=== PATIENT | male | born 1960 | race Caucasian/White ===

== ENCOUNTER 2018-07-29 06:15 | Outpatient (CLI) | payer MEDICAID ==
[~2018-07-29] VITALS: Ht 162.6 cm; Wt 70.5 kg
[~2018-07-29 06:15] MED LIST: ACET325T49 PO; ATOR10TA66 PO; BETA10003 PO; BISM262O24 PO; CARB15DR87 EACH EAR; DIAZ10TA3 PO; DOCU100T2 PO; FLUV100T3 PO; LORA1TAB PO; MAGN400O7 PO; METH54TA10 PO; OLAN10TA19 PO
[2018-08-03] MEDS ORDERED: CHLO473M MM (15:51)
[2018-08-03] MEDS ORDERED: METH27TA11 PO (15:51)
[2018-08-03] MEDS ORDERED: PARO30TA3 PO (15:51)
[2018-08-03] MEDS ORDERED: BENZ0.5T42 PO (15:51)
[2018-08-03] MEDS ORDERED: OLAN15TA19 PO (15:51)
[2018-08-03] MEDS ORDERED: CLON0.5T13 PO (15:51)
[2018-08-03] MEDS ORDERED: MULT1TAB72 PO (15:51)
[2018-08-03] MEDS ORDERED: SODI44SP2 NS (15:51)
== END 2018-08-03 15:58 | disposition home or self-care (01) ==
LOC: PREOP 06:15
PROVIDERS: ATTEND Otolaryngology Otolaryngology/Facial Plastic Surgery
DX: Z01.818 Encounter for other preprocedural examination (principal)

== ENCOUNTER 2018-08-06 07:40 | Day surgery (SDC) | payer MEDICAID ==
[~2018-08-06] VITALS: Ht 162.6 cm; Wt 70.5 kg
[2018-08-06] VITALS (10 sets, daily range): BP systolic 97–127; BP diastolic 47–77
[~2018-08-06 07:40] MED LIST changes: +BENZ0.5T42 PO; +CHLO473M MM; +CLON0.5T13 PO; +METH27TA11 PO; +MULT1TAB72 PO; +OLAN15TA19 PO; +PARO30TA3 PO; +SODI44SP2 NS
--- OUTSIDE RECORDS SUMMARY | 2018-08-06 07:44 | XMS REPORT ---
Author ALL [facility] Address [address] [place], [place] [id number] Care Team Providers Care Senior Engineering Manager Name Role Phone ALL EGLLER PCP ALL GELLER PreferredProvider Allergies and Adverse Reactions Name Reaction Notes NO KNOWN DRUG ALLERGIES Plan of Treatment Planned Activity Comments Planned Date Planned Time Plan/Goal bloody nose 03/22/2018 10:45 AM MRI ABDOMEN W/WO CONTRAST 04/21/2016 12:00 AM CMP 08/03/2017 12:00 AM LIPID PANEL 08/03/2017 12:00 AM PSA TOTAL 10/19/2017 12:00 AM PSA TOTAL 10/20/2017 12:00 AM Medications Active Name Start Date Estimated Completion Date SIG Comments fluvoxamine 100 mg oral tablet take 1 tablet (100 mg) by oral route 2 times per day Zyprexa 10 mg oral tablet take 1 tablet (10 mg) by oral route once daily Peridex 0.12 % mucous membrane mouthwash place 15 milliliters in the mouth by mucous membrane route 2 times per day after brushing teeth, swish in mouth for 30 seconds then spit out Therems oral tablet 12/22/2016 take 1 tablet by oral route daily Lipitor 10 mg oral tablet 12/23/2016 take 1 tablet (10 mg) by oral route once daily at bedtime Debrox 6.5 % otic (ear) drops 03/19/2017 instill 5 drops in affected ear BID the first 3 days of every month lorazepam 1 mg oral tablet 09/10/2017 Take one tab prior to dental procedures. Therems oral tablet 11/19/2017 TAKE 1 TABLET BY MOUTH ONCE DAILY FOR NUTRITIONAL SUPPLEMENT DOK 100 mg oral capsule 11/19/2017 TAKE 1 CAPSULE BY MOUTH EVERY MORNING hydrocortisone 1 % topical cream 02/22/2018 APPLY TWICE DAILY TO FACE NEEDED atorvastatin 10 mg oral tablet 02/23/2018 TAKE 1 TABLET BY MOUTH AT BEDTIME FOR HYPERLIPIDEMIA fluticasone 50 mcg/actuation nasal spray,suspension 03/10/2018 INSTILL 1 SPRAY INTO EACH NOSTRIL TWICE DAILY chlorhexidine gluconate 0.12 % mucous membrane mouthwash 03/11/2018 APPLY 10ML BY MOUTH TWICE DAILY *SWISH AND SWALLOW* Name Start Date Expiration Date SIG Comments diazepam 10 mg oral tablet 07/14/2013 07/20/2013 take 1 tablet (10 mg) by oral route 1 hr before dental appt. may repeat dose at appt. as needed methylphenidate 54 mg oral tablet extended release 24hr 08/22/2013 09/21/2013 take 1 tablet (54 mg) by oral route once daily in the morning for 30 days for ADHD connections resident methylphenidate 54 mg oral tablet extended release 24hr 08/22/2013 09/21/2013 take 1 tablet (54 mg) by oral route once daily in the morning for 30 days for ADHD connections resident Zithromax Z-Edmudn 250 mg oral tablet 04/03/2017 04/08/2017 take 2 tablets (500 mg) by oral route once daily for 1 day then 1 tablet (250 mg) by oral route once daily for 4 days cephalexin 500 mg oral capsule 10/09/2017 10/16/2017 take 1 capsule (500 mg) by oral route every 12 hours for 7 days [place] 5-325 mg oral tablet 10/09/2017 10/19/2017 take 1 tablet by oral route every 6 hours as needed for pain for 10 days amoxicillin 500 mg oral capsule 02/02/2018 02/12/2018 take 1 capsule (500 mg) by oral route every 12 hours for 10 days Problem List Description Status Onset Mental retardation Active ADHD Active Anxiety Disorder, Generalized Active Constipation Active Hyperlipidemia, Mixed Active Intermittent explosive disorder Active Schizoaffective disorder; Bipolar type Active Vitamin deficiency Active Schizoaffective disorder, bipolar type Active 06/18/2016 Medication management Active 06/18/2016 Periodontitis Active 02/11/2018 Vital Signs Date Time BP-Sys(mm[Hg] BP-Jing(mm[Hg]) HR(bpm) RR(rpm) Temp WT HT HC BMI BSA BMI Percentile O2 Sat(%) 05/26/2018 10:43:00 AM 116 mmHg 72 mmHg 82 bpm 18 rpm 98.2 F 136 lbs 66 in 21.9507 kg/m 1.6949 m 98 % 02/16/2018 9:17:00 AM 116 mmHg 78 mmHg 88 bpm 18 rpm 98.3 F 137 lbs 66 in 22.11 kg/m2 1.70 m2 98 % 02/02/2018 11:03:00 AM 110 mmHg 68 mmHg 93 bpm 20 rpm 98.1 F 134 lbs 66 in 21.6279 kg/m 1.6824 m 95 % 10/07/2017 1:55:00 PM 120 mmHg 80 mmHg 70 bpm 18 rpm 98.1 F 132 lbs 98 % 09/15/2017 11:15:00 AM 130 mmHg 80 mmHg 85 bpm 18 rpm 98.1 F 130.375 lbs 64 in 22.3786 kg/m 1.6341 m 96 % 08/03/2017 11:02:00 AM 116 mmHg 82 mmHg 90 bpm 18 rpm 98.2 F 131 lbs 64 in 22.49 kg/m2 1.64 m2 98 % 04/03/2017 11:07:00 AM 108 mmHg 70 mmHg 94 bpm 18 rpm 96 F 139 lbs 98 % 12/05/2016 11:07:00 AM 125 mmHg 62 mmHg 70 bpm 16 rpm 98.4 F 147 lbs 64 in 25.2322 kg/m 1.7352 m 98 % 09/08/2016 11:28:00 AM 122 mmHg 78 mmHg 92 bpm 16 rpm 98.2 F 145 lbs 64 in 24.89 kg/m2 1.72 m2 100 % 06/09/2016 11:34:00 AM 125 mmHg 62 mmHg 102 bpm 18 rpm 97.4 F 141 lbs 64 in 24.2023 kg/m 1.6994 m 95 % 05/12/2016 2:06:00 PM 124 mmHg 70 mmHg 62 bpm 16 rpm 97.1 F 134 lbs 64 in 23.00 kg/m2 1.66 m2 98 % 04/21/2016 10:45:00 AM 130 mmHg 104 mmHg 97 bpm 20 rpm 97.6 F 144 lbs 64 in 24.7173 kg/m 1.7174 m 95 % 01/29/2016 3:47:00 PM 122 mmHg 80 mmHg 92 bpm 16 rpm 97.9 F 154 lbs 64 in 26.43 kg/m2 1.78 m2 98 % 08/21/2015 10:22:00 AM 108 mmHg 74 mmHg 80 bpm 18 rpm 98.2 F 169 lbs 64 in 29.0085 kg/m 1.8605 m 94 % 10/16/2014 11:29:00 AM 100 mmHg 60 mmHg 90 bpm 16 rpm 98.4 F 156 lbs 94 % 10/11/2013 9:10:00 AM 122 mmHg 76 mmHg 91 bpm 20 rpm 97.6 F 147.437 lbs 94 % 12/08/2012 9:21:00 AM 112 mmHg 68 mmHg 64 bpm 24 rpm 98.6 F 140 lbs 64 in 24.0307 kg/m 1.6934 m 99 % 06/08/2012 3:00:00 PM 110 mmHg 60 mmHg 120 bpm 16 rpm 97.3 F 140 lbs 64 in 24.03 kg/m2 1.69 m2 99 % 10/14/2011 10:16:00 AM 105 mmHg 64 mmHg 52 bpm 18 rpm 142.312 lbs 07/08/2011 9:56:00 AM 114 mmHg 72 mmHg 66 bpm 140 lbs 64 in 24.0307 kg/m 1.6934 m 96 % 04/16/2011 10:04:00 AM 118 mmHg 72 mmHg 80 bpm 139 lbs 63 in 24.62 kg/m2 1.67 m2 97 % 01/15/2011 9:48:00 AM 112 mmHg 80 mmHg 93 bpm 138 lbs 63 in 24.4454 kg/m 1.6681 m 96 % 10/03/2010 10:09:00 AM 122 mmHg 76 mmHg 76 bpm 141 lbs 05/30/2009 2:50:00 PM 118 mmHg 76 mmHg 72 bpm 99 F 154 lbs Social History Name Description Comments Tobacco Never smoker denies alcohol use History of Procedures Date Ordered Description Order Status 03/05/2016 12:00 AM ELECTROCARDIOGRAM TRACING Returned 08/03/2017 12:00 AM COMPLETE CBC W/AUTO DIFF WBC Returned 09/15/2017 12:00 AM URINALYSIS AUTO W/SCOPE Reviewed 03/18/2018 12:00 AM INFLUENZA A/B AG EIA Returned Results Summary Date and Description Results 09/15/2017 11:30 AM COLOR YELLOW APPEARANCE CLEAR SPEC GRAV 1.020 pH 8.5 PROTEIN NEGATIVE GLUCOSE NEGATIVE KETONE NEGATIVE BILIRUBIN NEGATIVE BLOOD NEGATIVE NITRITE NEGATIVE LEUK SCREEN NEGATIVE WBC/HPF RARE RBC/HPF NEGATIVE CASTS/LPF NEGATIVE CRYSTALS TRACE CA OX MUCOUS THRDS FEW BACTERIA 1+ EPITH CELLS NEGATIVE TRICHOMONAS NEGATIVE YEAST NEGATIVE CULT SET UP? NO History Of Immunizations Not available. History of Past Illness Name Date of Onset Comments General Medical Exam, Adult Mar 17 2010 2:51PM Mental retardation Hyperlipidemia, Mixed Intermittent explosive disorder ADHD Schizoaffective disorder; Bipolar type Vitamin deficiency Anxiety Disorder, Generalized Constipation Schizoaffective disorder, bipolar type 06/18/2016 Medication management 06/18/2016 Seborrhea Capitis Oct 03 2010 10:07AM Eczema Jan 15 2011 9:44AM Periodontitis 02/11/2018 Psoriasis b 2011 10:05AM Mental Retardation Apr 16 2011 10:05AM Hyperlipidemia, unspecified Jul 08 2011 9:58AM General Medical Exam, Adult Jul 08 2011 9:58AM ADHD Jul 08 2011 9:58AM Impulse control disorder, unspecified Jul 08 2011 9:58AM Mental Retardation Jul 08 2011 9:58AM Paranoid Type Schizophrenia Oct 14 2011 10:18AM Mental Retardation Oct 14 2011 10:18AM Pain in joint; ankle and foot Jun 08 2012 3:02PM Mental Retardation Dec 15 2012 9:22AM ADHD Dec 15 2012 9:22AM Anxiety Disorder, Generalized Dec 15 2012 9:22AM Hyperlipidemia, Mixed Dec 15 2012 9:22AM Intermittent explosive disorder Dec 15 2012 9:22AM Schizoaffective disorder; Bipolar type Dec 15 2012 9:22AM Vitamin Deficiency Dec 15 2012 9:22AM Mental Retardation Oct 11 2013 9:11AM ADHD Oct 11 2013 9:11AM Anxiety Disorder, Generalized Oct 11 2013 9:11AM Intermittent explosive disorder Oct 11 2013 9:11AM Schizoaffective disorder; Bipolar type Oct 11 2013 9:11AM Constipation Oct 16 2014 11:29AM Mental retardation Oct 16 2014 11:29AM ADHD Oct 16 2014 11:29AM Anxiety Disorder, Generalized Oct 16 2014 11:29AM Hyperlipidemia, Mixed Oct 16 2014 11:29AM Intermittent explosive disorder Oct 16 2014 11:29AM Schizoaffective disorder; Bipolar type Oct 16 2014 11:29AM Vitamin deficiency Oct 16 2014 11:29AM Mental retardation Aug 21 2015 10:23AM ADHD Aug 21 2015 10:23AM Anxiety Disorder, Generalized Aug 21 2015 10:23AM Hyperlipidemia, mixed Aug 21 2015 10:23AM Moderate Chronic Intermittent explosive disorder Aug 21 2015 10:23AM Moderate Chronic Schizoaffective disorder; Bipolar type Stable Aug 21 2015 10:23AM Mental retardation Jan 29 2016 3:47PM Intermittent explosive disorder Jan 29 2016 3:47PM Schizoaffective disorder; Bipolar type Jan 29 2016 3:47PM Irregular heart beat Mar 05 2016 11:21AM Pancreatic lesion Apr 21 2016 10:45AM Mental retardation May 12 2016 2:07PM ADHD May 12 2016 2:07PM Anxiety Disorder, Generalized May 12 2016 2:07PM Intermittent explosive disorder May 12 2016 2:07PM Schizoaffective disorder; Bipolar type May 12 2016 2:07PM Resolved Hypoxemia May 12 2016 2:07PM Mild Chest congestion Stable May 12 2016 2:07PM Medication management Jun 09 2016 11:35AM Mental retardation Jun 09 2016 11:35AM ADHD (attention deficit hyperactivity disorder) Jun 09 2016 11:35AM FERNY (generalized anxiety disorder) Jun 09 2016 11:35AM Hyperlipidemia, Mixed Jun 09 2016 11:35AM Intermittent explosive disorder Jun 09 2016 11:35AM Schizoaffective disorder, bipolar type Jun 09 2016 11:35AM Encounter for routine adult health examination without abnormal findings Sep 08 2016 11:30AM Upper respiratory tract infection, unspecified type Dec 05 2016 11:08AM Moderate Acute Acute seasonal allergic rhinitis, unspecified trigger Improving Dec 05 2016 11:08AM Cough Apr 03 2017 11:09AM Chest congestion Apr 03 2017 11:09AM Upper respiratory tract infection, unspecified type Apr 03 2017 11:09AM Screening for prostate cancer Aug 03 2017 10:48AM Hyperlipemia Aug 03 2017 10:48AM Fatigue Aug 03 2017 10:48AM Encounter for routine adult health examination without abnormal findings Aug 03 2017 11:03AM Abnormal PSA Sep 15 2017 11:17AM Acute Tooth infection Oct 07 2017 1:55PM Severe Acute Tooth pain Oct 07 2017 1:55PM Moderate Chronic Periodontosis Oct 07 2017 1:55PM Abnormal PSA Oct 20 2017 9:30AM Purulent postnasal drainage Feb 02 2018 11:04AM Upper respiratory tract infection, unspecified type Feb 02 2018 11:04AM Moderate Chronic Periodontitis Feb 02 2018 11:04AM Acute nasopharyngitis Feb 16 2018 9:20AM Epistaxis, recurrent Feb 16 2018 9:20AM Nasal congestion Feb 16 2018 9:20AM Cough Mar 18 2018 11:26AM Encounter for routine adult health examination without abnormal findings May 26 2018 10:43AM Payers Insurance Name Company Name Plan Name Plan Number Policy Number Policy Group Number Start Date [facility] [id number] N/A [place] Program [place] Prog [id number] N/A [facility] [id number] N/A History of Encounters Visit Date Visit Type Provider 05/26/2018 Office visit ALL WOODS 03/18/2018 Office visit ALL WOODS 02/16/2018 Office visit ALL WOODS 02/02/2018 Office visit ALL WOODS 10/07/2017 Office visit ALL WOODS 09/15/2017 Office visit Pérez Wooten MD 08/03/2017 Office visit ALL WOODS 04/03/2017 Office visit ALL WOODS 12/04/2016 Office visit ALL WOODS 09/08/2016 Office visit ALL WOODS 06/09/2016 Office visit ALL WOODS 05/12/2016 Office visit ALL WOODS 04/21/2016 Office visit All Euceda MD 03/11/2016 [facility] Dina Hodgson MD 01/29/2016 Office visit ALL WOODS 08/21/2015 Office visit ALL WOODS 10/16/2014 Office visit ALL WOODS 10/11/2013 Office visit ALL WOODS 12/08/2012 Office visit ALL WOODS 06/08/2012 Office visit ALL WOODS 10/14/2011 Office visit ALL WOODS 07/08/2011 Office visit ALL WOODS 04/16/2011 Office visit ALL WOODS 01/15/2011 Office visit ALL GELLER PA 10/03/2010 Office visit All WOODS-C 05/30/2009 Office visit All DOMINGUEZC
--- OUTSIDE RECORDS SUMMARY | 2018-08-06 07:45 | XMS REPORT ---
Author ALL [facility] Address [address] [place], [place] [id number] Care Team Providers Care Presiding Judge Name Role Phone ALL GELLER PCP ALL GELLER PreferredProvider Allergies and Adverse [...] TAKE 1 CAPSULE BY MOUTH EVERY MORNING fluticasone 50 mcg/actuation nasal spray,suspension 02/02/2018 inhale 1 spray (50 mcg) in each nostril by intranasal route 2 times per day chlorhexidine gluconate 0.12 % mucous membrane mouthwash 02/15/2018 place 15 milliliters in the mouth by mucous membrane route 2 times per day (after meals), swish in mouth for 30 seconds then spit out hydrocortisone 1 % topical cream 02/22/2018 APPLY TWICE DAILY TO FACE NEEDED atorvastatin 10 mg oral tablet 02/23/2018 TAKE 1 TABLET BY MOUTH AT BEDTIME FOR HYPERLIPIDEMIA Name Start Date Expiration Date SIG Comments [...] 30 days for ADHD connections resident Zithromax Z-Edmund 250 mg oral tablet 04/03/2017 04/08/2017 take 2 tablets (500 mg) by oral route once daily for 1 day then 1 tablet (250 mg) by oral route once daily for 4 days cephalexin 500 mg oral capsule 10/09/2017 10/16/2017 take 1 capsule (500 mg) by oral route every 12 hours for 7 days [place] 5-325 mg oral tablet 10/09/2017 10/19/2017 take 1 tablet by oral route every 6 hours as needed for pain for 10 days amoxicillin 500 mg oral capsule 02/02/2018 02/12/2018 take 1 capsule (500 mg) by oral route every 12 hours for 10 days Problem List Description Status Onset Mental retardation Active ADHD Active Anxiety Disorder, Generalized Active Constipation Active Hyperlipidemia, mixed Active Intermittent explosive disorder Active Schizoaffective disorder; Bipolar type Active Vitamin deficiency Active Schizoaffective disorder, bipolar type Active 06/18/2016 Medication management Active 06/18/2016 Periodontitis Active 02/11/2018 Vital Signs Date Time BP-Sys(mm[Hg] BP-Jing(mm[Hg]) HR(bpm) RR(rpm) Temp WT HT HC BMI BSA BMI Percentile O2 Sat(%) 02/16/2018 9:17:00 AM 116 mmHg 78 mmHg 88 bpm 18 rpm 98.3 F 137 lbs 66 in 22.1122 kg/m 1.7011 m 98 % 02/02/2018 11:03:00 AM 110 mmHg 68 mmHg 93 bpm 20 rpm 98.1 F 134 lbs 66 in 21.63 kg/m2 1.68 m2 95 % 10/07/2017 1:55:00 PM 120 mmHg 80 mmHg 70 bpm 18 rpm 98.1 F 132 lbs 98 % 09/15/2017 11:15:00 AM 130 mmHg 80 mmHg 85 bpm 18 rpm 98.1 F 130.375 lbs 64 in 22.38 kg/m2 1.63 m2 96 % 08/03/2017 11:02:00 AM 116 mmHg 82 mmHg 90 bpm 18 rpm 98.2 F 131 lbs 64 in 22.4859 kg/m 1.638 m 98 % 04/03/2017 11:07:00 AM 108 mmHg [...] 09/15/2017 12:00 AM URINALYSIS AUTO W/SCOPE Reviewed Results Summary Date and Description Results 09/15/2017 [...] of Onset Comments General Medical Exam, Adult May 30 2009 2:51PM Mental retardation Hyperlipidemia, mixed Intermittent explosive disorder ADHD Schizoaffective disorder; Bipolar type Vitamin deficiency Anxiety Disorder, Generalized Constipation Schizoaffective disorder, bipolar type 06/18/2016 Medication management 06/18/2016 Seborrhea Capitis Oct 03 2010 10:07AM Eczema Jan 15 2011 9:44AM Periodontitis 02/11/2018 Psoriasis Apr 16 2011 10:05AM Mental Retardation Apr 16 2011 [...] 9:20AM Nasal congestion Feb 16 2018 9:20AM Payers Insurance Name Company Name Plan Name Plan Number Policy Number Policy Group Number Start Date [facility] [id number] N/A [place] [employer] [place] [id number] N/A [facility] [place] - [facility] [id number] N/A History of Encounters Visit Date Visit Type Provider 02/16/2018 Office visit ALL WOODS 02/02/2018 Office visit ALL WOODS 10/07/2017 Office visit ALL WOODS 09/15/2017 Office visit Pérez Wooten MD 08/03/2017 Office visit ALL GELLER PA 04/03/2017 Office visit ALL GELLER PA 12/04/2016 Office visit ALL GELLER PA 09/08/2016 Office visit ALL WOODS 06/09/2016 Office visit ALL WOODS 05/12/2016 Office visit ALL WOODS 04/21/2016 Office visit All Euceda MD 03/11/2016 [facility] Rosalia Hodgson MD 01/29/2016 Office visit ALL GELLER PA 08/21/2015 Office visit ALL GELLER PA 10/16/2014 Office visit ALL WOOSD 10/11/2013 Office visit ALL WOODS 12/08/2012 Office visit ALL GELLER PA 06/08/2012 Office visit ALL GELLER PA 10/14/2011 Office visit ALL GELLER PA 07/08/2011 Office visit ALL GELLER PA 04/16/2011 Office visit ALL GELLER PA 01/15/2011 Office visit ALL GELLER PA 10/03/2010 Office visit All WOODS-C 05/30/2009 Office visit All DOMINGUEZC
--- OUTSIDE RECORDS SUMMARY | 2018-08-06 07:45 | XMS REPORT ---
Author ALL [facility] Address [address] [place], [place] [phone] Care Team Providers Care Laborer Electroplating Name Role Phone ALL GELLER PCP ALL GELLER PreferredProvider Allergies and Adverse Reactions Name Reaction Notes NO KNOWN DRUG ALLERGIES Plan of Treatment Planned Activity Comments Planned Date Planned Time Plan/Goal bloody nose 03/22/2018 10:45 AM MRI ABDOMEN W/WO CONTRAST 04/21/2016 12:00 AM CMP 08/03/2017 12:00 AM LIPID PANEL 08/03/2017 12:00 AM PSA TOTAL 10/19/2017 12:00 AM PSA TOTAL 10/20/2017 12:00 AM INFLUENZA A & B 03/18/2018 12:00 AM Medications Active Name Start Date [...] route every 12 hours for 7 days [place] 5-325 mg oral tablet 10/09/2017 10/19/2017 take [...] 2018 9:20AM Cough Mar 18 2018 11:26AM Payers Insurance Name Company Name Plan Name Plan Number Policy Number Policy Group Number Start Date [facility] [id number] N/A [place] [employer] Program [place] [employer] [place] Prog [id number] N/A [facility] - [facility] [id number] N/A History of Encounters Visit Date Visit Type Provider 03/18/2018 Office visit ALL WOODS 02/16/2018 Office visit ALL WOODS 02/02/2018 Office visit ALL GELLER PA 10/07/2017 Office visit ALL WODOS 09/15/2017 Office visit Pérez Wooten MD 08/03/2017 Office visit ALL GELLER PA 04/03/2017 Office visit ALL GELLER PA 12/04/2016 Office visit ALL GELLER PA 09/08/2016 Office visit ALL GELLER PA 06/09/2016 Office visit ALL GELLER PA 05/12/2016 Office visit ALL WOODS 04/21/2016 Office visit All Euceda MD 03/11/2016 [facility] Rosalia Hodgson MD 01/29/2016 Office visit ALL GELLER PA 08/21/2015 Office visit ALL GELLER PA 10/16/2014 Office visit ALL GELLER PA 10/11/2013 Office visit ALL WOODS 12/08/2012 Office visit ALL GELLER PA 06/08/2012 Office visit ALL GELLER PA 10/14/2011 Office visit ALL GELLER PA 07/08/2011 Office visit ALL GELLER PA 04/16/2011 Office visit ALL GELLER PA 01/15/2011 Office visit ALL GELLER PA 10/03/2010 Office visit All Geller PA-C 05/30/2009 Office visit All Geller PA-C
--- OUTSIDE RECORDS SUMMARY | 2018-08-06 07:46 | XMS REPORT ---
Author ALL [facility] Address [address] [place], [place] [id number] Care Team Providers Care Consumer Analyst Name Role Phone ALL GELLER PCP ALL GELLER PreferredProvider Allergies and Adverse Reactions Name Reaction Notes NO KNOWN DRUG ALLERGIES Plan of Treatment Planned Activity Comments Planned Date Planned Time Plan/Goal MRI ABDOMEN W/WO CONTRAST 04/21/2016 12:00 AM [...] Take one tab prior to dental procedures. atorvastatin 10 mg oral tablet 11/19/2017 TAKE 1 TABLET BY MOUTH AT BEDTIME FOR HYPERLIPIDEMIA Therems oral tablet 11/19/2017 TAKE 1 TABLET [...] mouth for 30 seconds then spit out Name Start Date Expiration Date SIG Comments [...] route every 12 hours for 7 days [place] 5-325 mg oral tablet 10/09/2017 10/19/2017 take [...] May 30 2009 2:51PM Mental retardation Hyperlipidemia, Mixed Intermittent explosive [...] Policy Number Policy Group Number Start Date [facility] [id number] N/A [place] [employer] [place] [id number] N/A [facility] [id number] N/A History of Encounters Visit Date Visit [...] ALL GELLER PA 05/12/2016 Office visit ALL GELLER PA 04/21/2016 Office visit All Euceda MD 03/11/2016 [facility] Dina Hodgson MD 01/29/2016 Office visit ALL GELLER PA 08/21/2015 Office visit ALL WOODS 10/16/2014 Office visit ALL GELLER PA 10/11/2013 Office visit ALL WOODS 12/08/2012 Office visit ALL GELLER PA 06/08/2012 Office visit ALL GELLER PA 10/14/2011 Office visit ALL GELLER PA 07/08/2011 Office visit ALL GELLRE PA 04/16/2011 Office visit ALL GELLER PA 01/15/2011 Office visit ALL GELLER PA 10/03/2010 Office visit All Geller PA-C 05/30/2009 Office visit All Geller PA-C
--- OUTSIDE RECORDS SUMMARY | 2018-08-06 07:46 | XMS REPORT ---
Author ALL [facility] Address [address] [place], [place] [phone] Care Team Providers Care Medicine Technologist Name Role Phone ALL GELLER PCP ALL [...] route every 12 hours for 7 days [place] 5-325 mg oral tablet 10/09/2017 10/19/2017 take [...] Policy Number Policy Group Number Start Date [facility] [id number] N/A [place] [employer] Program [place] [employer] Pro [id number] N/A [facility] - [facility] [id number] N/A History of Encounters Visit Date Visit [...] 04/21/2016 Office visit All Euceda MD 03/11/2016 [facility] Rosalia Hodgson MD 01/29/2016 Office visit ALL GELLER PA 08/21/2015 Office visit ALL GELLER PA 10/16/2014 Office visit ALL WOODS 10/11/2013 Office visit ALL WOODS 12/08/2012 Office visit ALL GELLER PA 06/08/2012 Office visit ALL GELLER PA 10/14/2011 Office visit ALL GELLER PA 07/08/2011 Office visit ALL GELLER PA 04/16/2011 Office visit ALL GELLER PA 01/15/2011 Office visit ALL GELLER PA 10/03/2010 Office visit All WOODS-C 05/30/2009 Office visit All DOMINGUEZC
--- OUTSIDE RECORDS SUMMARY | 2018-08-06 07:47 | XMS REPORT ---
Author ALL Govea [facility] Address [address] [place], [place] [id number] Care Team Providers Care Client Service Executive Name Role Phone ALL GELLER PCP ALL [...] TAKE 1 CAPSULE BY MOUTH EVERY MORNING amoxicillin 500 mg oral capsule 02/02/2018 02/12/2018 take 1 capsule (500 mg) by oral route every 12 hours for 10 days chlorhexidine gluconate 0.12 % mucous membrane mouthwash 02/02/2018 place 15 milliliters in the mouth by mucous membrane route 2 times per day (after meals), swish in mouth for 30 seconds then spit out fluticasone 50 mcg/actuation nasal spray,suspension 02/02/2018 inhale 1 spray (50 mcg) in each nostril by intranasal route 2 times per day Name Start Date Expiration Date SIG Comments [...] route every 12 hours for 7 days [place] 5-325 mg oral tablet 10/09/2017 10/19/2017 take 1 tablet by oral route every 6 hours as needed for pain for 10 days Problem List Description Status [...] HC BMI BSA BMI Percentile O2 Sat(%) 02/02/2018 11:03:00 AM 110 mmHg 68 mmHg [...] Retardation Apr 16 2011 10:05AM Hyperlipidemia, unspecified Apr 24 2012 9:58AM General Medical Exam, Adult Jul 08 [...] Moderate Chronic Periodontitis Feb 02 2018 11:04AM Payers Insurance Name Company Name Plan Name Plan Number Policy Number Policy Group Number Start Date [facility] [id number] N/A [place] Medical [place] Prog [id number] N/A [facility] [id number] N/A History of Encounters Visit Date Visit Type Provider 02/02/2018 Office visit ALL WOODS 10/07/2017 Office visit ALL WOODS 09/15/2017 Office visit Pérez Wooten MD 08/03/2017 Office visit ALL WOODS 04/03/2017 Office visit ALL WOODS 12/04/2016 Office visit ALL WOODS 09/08/2016 Office visit ALL WOODS 06/09/2016 Office visit ALL WOODS 05/12/2016 Office visit ALL WOODS 04/21/2016 Office visit All uEceda MD 03/11/2016 [facility] Dina Hodgson MD 01/29/2016 Office visit ALL GELLER PA 08/21/2015 Office visit ALL WOODS 10/16/2014 Office visit ALL WOODS 10/11/2013 Office visit ALL WOODS 12/08/2012 Office visit ALL WOODS 06/08/2012 Office visit ALL WOODS 10/14/2011 Office visit ALL WOODS 07/08/2011 Office visit ALL WOODS 04/16/2011 Office visit ALL WOODS 01/15/2011 Office visit ALL WOODS 10/03/2010 Office visit All DOMINGUEZC 05/30/2009 Office visit All Geller PA-C
--- OUTSIDE RECORDS SUMMARY | 2018-08-06 07:47 | XMS REPORT ---
Author Author ALL GELLER [facility] Address [address] [place], [place] [phone] Care Team Providers Care Call Box Wirer Name Role Phone ALL GELLER PCP ALL [...] take 1 tablet by oral route daily DOK 100 mg oral capsule 12/22/2016 take 1 capsule (100 mg) by oral route once daily Lipitor 10 mg oral tablet 12/23/2016 take 1 tablet (10 mg) by oral route once daily at bedtime Debrox 6.5 % otic (ear) drops 03/19/2017 instill 5 drops in affected ear BID the first 3 days of every month lorazepam 1 mg oral tablet 09/10/2017 Take one tab prior to dental procedures. Name Start Date Expiration Date SIG Comments [...] route every 12 hours for 7 days [place] 5-325 mg oral tablet 10/09/2017 10/19/2017 take 1 tablet by oral route every 6 hours as needed for pain for 10 days Problem List Description Status Onset Mental retardation Active ADHD Active Anxiety Disorder, Generalized Active Constipation Active Hyperlipidemia, Mixed Active Intermittent explosive disorder Active Schizoaffective disorder; Bipolar type Active Vitamin deficiency Active Schizoaffective disorder, bipolar type Active 06/18/2016 Medication management Active 06/18/2016 Vital Signs Date Time BP-Sys(mm[Hg] BP-Jing(mm[Hg]) HR(bpm) RR(rpm) Temp WT HT HC BMI BSA BMI Percentile O2 Sat(%) 10/07/2017 1:55:00 PM 120 mmHg 80 mmHg [...] Returned 09/15/2017 12:00 AM URINALYSIS AUTO W/SCOPE Returned Results Summary Not available. History Of Immunizations Not available. History of Past Illness Name Date of Onset Comments General Medical Exam, Adult May 30 2009 2:51PM Mental retardation Hyperlipidemia, Mixed Intermittent explosive disorder ADHD Schizoaffective disorder; Bipolar type Vitamin deficiency Anxiety Disorder, Generalized Constipation Schizoaffective disorder, bipolar type 06/18/2016 Medication management 06/18/2016 Seborrhea Capitis Oct 03 2010 10:07AM Eczema Jan 15 2011 9:44AM Psoriasis Apr 16 2011 10:05AM Mental Retardation [...] 1:55PM Abnormal PSA Oct 20 2017 9:30AM Payers Insurance Name Company Name Plan Name Plan Number Policy Number Policy Group Number Start Date [facility] [id number] N/A [place] Medical Assistance [facility] Medical Assistance Pro [id number] N/A [facility] [id number] N/A History of Encounters Visit Date Visit Type Provider 10/07/2017 Office visit ALL WOODS 09/15/2017 Office visit Pérez Wooten MD 08/03/2017 Office visit ALL WOODS 04/03/2017 Office visit ALL WOODS 12/04/2016 Office visit ALL WOODS 09/08/2016 Office visit ALL WOODS 06/09/2016 Office visit ALL WOODS 05/12/2016 Office visit ALL WOODS 04/21/2016 Office visit All Euceda MD 03/11/2016 [facility] Dina Hodgson MD 01/29/2016 Office visit ALL WOODS 08/21/2015 Office visit ALL WOODS 10/16/2014 Office visit ALL WOODS 10/11/2013 Office visit ALL WOODS 12/08/2012 Office visit ALL WOODS 06/08/2012 Office visit ALL WOODS 10/14/2011 Office visit ALL WOODS 07/08/2011 Office visit ALL WOODS 04/16/2011 Office visit ALL WOODS 01/15/2011 Office visit ALL WOODS 10/03/2010 Office visit All Geller PA-C 05/30/2009 Office visit All Geller PA-C
--- OUTSIDE RECORDS SUMMARY | 2018-08-06 07:48 | XMS REPORT ---
Author Author ALL GELLER [facility] Address [address] [place], [place] [phone] Care Team Providers Care Glass Blowing Lathe Operator Name Role Phone ALL GELLER PCP ALL [...] route every 12 hours for 7 days [place] 5-325 mg oral tablet 10/09/2017 10/19/2017 take [...] Policy Number Policy Group Number Start Date [facility] [id number] N/A [place] Medical Assistance [facility] Medical Assistance Pro [id number] N/A [facility] [id number] N/A History of Encounters Visit Date Visit Type Provider 10/07/2017 Office visit ALL WOODS 09/15/2017 Office visit Pérez Wooten MD 08/03/2017 Office visit ALL WOODS 04/03/2017 Office visit ALL WOODS 12/04/2016 Office visit ALL WOODS 09/08/2016 Office visit ALL WOODS 06/09/2016 Office visit ALL WOODS 05/12/2016 Office visit ALL WOODS 04/21/2016 Office visit All Euceda MD 03/11/2016 [facility] Dina Hodgson MD 01/29/2016 Office visit ALL [...]
--- OUTSIDE RECORDS SUMMARY | 2018-08-06 07:48 | XMS REPORT ---
Author Author ALL GELLER [facility] Address [address] [place], [place] [phone] Care Team Providers Care Sales Team Manager Name Role Phone ALL GELLER PCP ALL GELLER PreferredProvider Allergies and Adverse Reactions Name Reaction Notes NO KNOWN DRUG ALLERGIES Plan of Treatment Planned Activity Comments Planned Date Planned Time Plan/Goal MRI ABDOMEN W/WO CONTRAST 04/21/2016 12:00 AM CMP 08/03/2017 12:00 AM LIPID PANEL 08/03/2017 12:00 AM PSA TOTAL 10/19/2017 12:00 AM Medications Active Name Start Date [...] Take one tab prior to dental procedures. [place] 5-325 mg oral tablet 10/09/2017 10/19/2017 take 1 tablet by oral route every 6 hours as needed for pain for 10 days Name Start Date Expiration Date SIG Comments [...] route every 12 hours for 7 days Problem List Description Status Onset Mental [...] Moderate Chronic Periodontosis Oct 07 2017 1:55PM Payers Insurance Name Company Name Plan Name Plan Number Policy Number Policy Group Number Start Date [facility] [id number] N/A [place] Medical [place] Program [place] Prog [id number] N/A [facility] [id number] N/A History of Encounters Visit Date Visit Type Provider 10/07/2017 Office visit ALL WOODS 09/15/2017 Office visit Pérez Wooten MD 08/03/2017 Office visit ALL WOODS 04/03/2017 Office visit ALL WOODS 12/04/2016 Office visit ALL WOODS 09/08/2016 Office visit ALL WOODS 06/09/2016 Office visit ALL WOODS 05/12/2016 Office visit ALL WOODS 04/21/2016 Office visit All Euceda MD 03/11/2016 [facility] Dina Hodgson MD 01/29/2016 Office visit ALL WOODS 08/21/2015 Office visit ALL WOODS 10/16/2014 Office visit ALL WOODS 10/11/2013 Office visit ALL WOODS 12/08/2012 Office visit ALL WOODS 06/08/2012 Office visit ALL WOODS 10/14/2011 Office visit ALL WOODS 07/08/2011 Office visit ALL WOODS 04/16/2011 Office visit ALL WOODS 01/15/2011 Office visit ALL WOODS 10/03/2010 Office visit All WOODS-C 05/30/2009 Office visit All DOMINGUEZC
--- OUTSIDE RECORDS SUMMARY | 2018-08-06 07:49 | XMS REPORT ---
Author Author ALL GELLER [facility] Address [address] [place], [place] [phone] Care Team Providers Care Plastering Contractor Name Role Phone ALL GELLER PCP ALL GELLER PreferredProvider Allergies and Adverse Reactions Name Reaction Notes NO KNOWN DRUG ALLERGIES Plan of Treatment Planned Activity Comments Planned Date Planned Time Plan/Goal MRI ABDOMEN W/WO CONTRAST 04/21/2016 12:00 AM CMP 08/03/2017 12:00 AM LIPID PANEL 08/03/2017 12:00 AM Medications Active Name Start Date [...] Take one tab prior to dental procedures. cephalexin 500 mg oral capsule 10/09/2017 10/16/2017 take 1 capsule (500 mg) by oral route every 12 hours for 7 days [place] 5-325 mg oral tablet 10/09/2017 10/19/2017 take [...] oral route once daily for 4 days Problem List Description Status Onset Mental [...] Policy Number Policy Group Number Start Date [facility] [id number] N/A [place] Medical Assistance Program [place] Medical Assistance Prog [id number] N/A [facility] [id number] N/A History of Encounters Visit Date Visit Type Provider 10/07/2017 Office visit ALL WOODS 09/15/2017 Office visit Pérez Wooten MD 08/03/2017 Office visit ALL WOODS 04/03/2017 Office visit ALL WOODS 12/04/2016 Office visit ALL WOODS 09/08/2016 Office visit ALL WOODS 06/09/2016 Office visit ALL WOODS 05/12/2016 Office visit ALL WOODS 04/21/2016 Office visit All Euceda MD 03/11/2016 [facility] Dina Hodgson [...]
--- OUTSIDE RECORDS SUMMARY | 2018-08-06 07:49 | XMS REPORT ---
Author ALL [facility] Address [address] [place], [place] [phone] Care Team Providers Care Sorting Livestock Worker Name Role Phone ALL GELLER PCP ALL GELLER PreferredProvider Allergies and Adverse Reactions Name Reaction Notes NO KNOWN DRUG ALLERGIES Plan of Treatment Planned Activity Comments Planned Date Planned Time Plan/Goal MRI ABDOMEN W/WO CONTRAST 04/21/2016 12:00 AM CBC W/ AUTO DIFF (RFLX MAN DIFF IF IND). 08/03/2017 12:00 AM CMP 08/03/2017 12:00 AM LIPID [...] mouth for 30 seconds then spit out lorazepam 1 mg oral tablet 12/19/2015 Take one tab prior to dental procedures. Therems oral tablet 12/22/2016 take 1 tablet [...] the first 3 days of every month Name Start Date Expiration Date SIG Comments [...] HC BMI BSA BMI Percentile O2 Sat(%) 08/03/2017 11:02:00 AM 116 mmHg 82 mmHg [...] Status 03/05/2016 12:00 AM ELECTROCARDIOGRAM TRACING Returned Results Summary Not available. History Of [...] without abnormal findings Aug 03 2017 11:03AM Payers Insurance Name Company Name Plan Name Plan Number Policy Number Policy Group Number Start Date [facility] [id number] N/A [place] Medical Assistance [facility] Medical Assistance Pro [id number] N/A History of Encounters Visit Date Visit Type Provider 08/03/2017 Office visit ALL WOODS 04/03/2017 Office visit ALL WOODS 12/04/2016 Office visit ALL WOODS 09/08/2016 Office visit ALL WOODS 06/09/2016 Office visit ALL WOODS 05/12/2016 Office visit ALL WOODS 04/21/2016 Office visit All Euceda MD 03/11/2016 [facility] Dina Hodgson MD 01/29/2016 Office visit ALL [...]
--- OUTSIDE RECORDS SUMMARY | 2018-08-06 07:50 | XMS REPORT ---
Author ALL Govea [facility] Address [address] [place], [place] [phone] Care Team Providers Care Prison Officer Name Role Phone ALL GELLER PCP Unavailable Allergies and Adverse Reactions Name Reaction Notes NO KNOWN DRUG ALLERGIES Plan of Treatment Not available. Medications Active Name Start Date Estimated Completion Date SIG Comments Lipitor 10 mg oral tablet take 1 tablet (10 mg) by oral route once daily at bedtime Debrox 6.5 % otic drops instill 5 drops in affected ear BID the first 3 days of every month fluvoxamine 100 mg oral tablet take 1 [...] for 30 days for ADHD connections resident Problem List Description Status Onset Mental retardation Active ADHD Active Anxiety Disorder, Generalized Active Constipation Active Hyperlipidemia, mixed Active Intermittent explosive disorder Active Schizoaffective disorder; Bipolar type Active Vitamin deficiency Active Vital Signs Date Time BP-Sys(mm[Hg] BP-Jing(mm[Hg]) HR(bpm) RR(rpm) Temp WT HT HC BMI BSA BMI Percentile O2 Sat(%) 08/21/2015 10:22:00 AM 108 mmHg 74 mmHg 80 bpm 18 rpm 98.2 F 169 lbs 64 in 29.01 kg/m2 1.86 m2 94 % 10/16/2014 11:29:00 AM 100 mmHg [...] mmHg 66 bpm 140 lbs 64 in 24.03 kg/m2 1.69 m2 96 % 04/16/2011 10:04:00 AM 118 mmHg 72 mmHg 80 bpm 139 lbs 63 in 24.6225 kg/m 1.6741 m 97 % 01/15/2011 9:48:00 AM 112 mmHg 80 mmHg 93 bpm 138 lbs 63 in 24.45 kg/m2 1.67 m2 96 % 10/03/2010 10:09:00 AM 122 mmHg 76 mmHg 76 bpm 141 lbs 05/30/2009 2:50:00 PM 118 mmHg 76 mmHg 72 bpm 99 F 154 lbs Social History Name Description Comments Tobacco Never smoker denies alcohol use History of Procedures Not available. Results Summary Data and Description Results 06/27/2009 6:35 AM TRIGLYCERIDES 57.0 mg/dLCHOLESTEROL 122.0 mg/dLHDL 35.0 mg/dLLDL (CALC) 76.0 mg/dLGLUCOSE 106.0 mg/dLSODIUM 144.0 mmol/LPOTASSIUM 4.20 mmol/LCHLORIDE 107.0 mmol/LCO2 29.0 mmol/LBUN 23.0 mg/dLCREATININE 0.80 mg/dLSGOT/AST 22.0 IU/LSGPT/ALT 32.0 IU/LALK PHOS 78.0 IU/LTOTAL PROTEIN 6.70 g/dLALBUMIN 4.10 g/dLTOTAL BILI 0.30 mg/dLCALCIUM 9.40 mg/dLeGFR >60 mL/min/1.73 m2 06/27/2009 2:43 PM OCC BLD STOOL NEGATIVE 06/27/2009 3:05 PM COLOR YELLOW APPEARANCE CLEAR SPEC GRAV 1.025 pH 6.0 PROTEIN NEGATIVE GLUCOSE NEGATIVE KETONE NEGATIVE BILIRUBIN NEGATIVE BLOOD NEGATIVE NITRITE NEGATIVE LEUK SCREEN NEGATIVE CASTS/LPF NEGATIVE CRYSTALS NEGATIVE MUCOUS THRDS 1+ BACTERIA FEW EPITH CELLS FEW SQUAMOUS TRICHOMONAS NEGATIVE YEAST NEGATIVE 05/13/2012 7:58 AM TRIGLYCERIDES 82.0 mg/dLCHOLESTEROL 127.0 mg/dLHDL 39.0 mg/dLLDL (CALC) 72.0 mg/dLGLUCOSE 83.0 mg/dLSODIUM 145.0 mmol/LPOTASSIUM 3.80 mmol/LCHLORIDE 105.0 mmol/LCO2 27.0 mmol/LBUN 26.0 mg/dLCREATININE 1.0 mg/dLSGOT/AST 25.0 IU/LSGPT/ALT 36.0 IU/LALK PHOS 69.0 IU/LTOTAL PROTEIN 7.50 g/dLALBUMIN 4.20 g/dLTOTAL BILI 0.40 mg/dLCALCIUM 10.0 mg/dLeGFR 60 10/30/2013 9:15 AM WBC 6.3 RBC 5.04 HGB 15.10 g/dLHCT 45.70 %MCV 91.0 fLMCH 30.0 pgMCHC 33.0 g/dLRDW CV 13.20 %MPV 10.90 fLPLT 178 History Of Immunizations Not available. History of Past Illness Name Date of Onset Comments General Medical Exam, Adult May 30 2009 2:51PM Mental retardation Hyperlipidemia, mixed Intermittent explosive disorder ADHD Schizoaffective disorder; Bipolar type Vitamin deficiency Anxiety Disorder, Generalized Constipation Seborrhea Capitis Oct 03 2010 10:07AM Eczema [...] Bipolar type Stable Aug 21 2015 10:23AM Payers Insurance Name Company Name Plan Name Plan Number Policy Number Policy Group Number Start Date [facility] [id number] N/A [place] Medical Assistance Program [place] Medical Assistance Pro [id number] N/A History of Encounters Visit Date Visit Type Provider 08/21/2015 Office visit ALL WOODS 10/16/2014 Office [...]
--- OUTSIDE RECORDS SUMMARY | 2018-08-06 07:50 | XMS REPORT ---
Author ALL Govea [facility] Address [address] [place], [place] [phone] Care Team Providers Care Marble Mechanic Helper Name Role Phone ALL GELLER PCP Unavailable Allergies and Adverse Reactions Name Reaction Notes NO KNOWN DRUG ALLERGIES Plan of Treatment Planned Activity Comments Planned Date Planned Time Plan/Goal EKG. 03/05/2016 12:00 AM Medications Active Name Start Date Estimated Completion Date SIG Comments Debrox 6.5 % otic drops instill 5 [...] Take one tab prior to dental procedures. Lipitor 10 mg oral tablet 01/31/2016 take 1 tablet (10 mg) by oral route once daily at bedtime DOK 100 mg oral capsule 01/31/2016 take 1 capsule (100 mg) by oral route once daily Therems oral tablet 01/31/2016 take 1 tablet by oral route daily Name Start Date Expiration Date SIG Comments [...] HC BMI BSA BMI Percentile O2 Sat(%) 01/29/2016 3:47:00 PM 122 mmHg 80 mmHg [...] rpm 98.6 F 140 lbs 64 in 24.03 kg/m2 1.69 m2 99 % 06/08/2012 3:00:00 PM 110 mmHg 60 mmHg 120 bpm 16 rpm 97.3 F 140 lbs 64 in 24.0307 kg/m 1.6934 m 99 % 10/14/2011 10:16:00 AM 105 mmHg [...] AM TRIGLYCERIDES 57.0 mg/dLCHOLESTEROL 122.0 mg/dLHDL 35.0 mg/dLTOT CHOL/HDL 3.5 LDL (CALC) 76.0 mg/dLGLUCOSE 106.0 mg/dLSODIUM 144.0 mmol/LPOTASSIUM 4.20 mmol/LCHLORIDE 107.0 mmol/LCO2 29.0 mmol/LBUN 23.0 mg/dLCREATININE 0.80 mg/dLSGOT/AST 22.0 IU/LSGPT/ALT 32.0 IU/LALK PHOS 78.0 IU/LTOTAL PROTEIN 6.70 g/dLALBUMIN 4.10 g/dLTOTAL BILI 0.30 mg/dLCALCIUM 9.40 mg/dLAGE 49 GFR NonAA 104 GFR AA 126 eGFR >60 mL/min/1.73 m2eGFR AA* >60 06/27/2009 2:43 PM OCC BLD STOOL NEGATIVE 06/27/2009 3:05 PM COLOR YELLOW APPEARANCE CLEAR SPEC GRAV 1.025 pH 6.0 PROTEIN NEGATIVE GLUCOSE NEGATIVE KETONE NEGATIVE BILIRUBIN NEGATIVE BLOOD NEGATIVE NITRITE NEGATIVE LEUK SCREEN NEGATIVE WBC/HPF RARE RBC/HPF NEGATIVE CASTS/LPF NEGATIVE CRYSTALS NEGATIVE MUCOUS THRDS 1+ BACTERIA FEW EPITH CELLS FEW SQUAMOUS TRICHOMONAS NEGATIVE YEAST NEGATIVE CULT SET UP? NO 05/13/2012 7:58 AM TRIGLYCERIDES 82.0 mg/dLCHOLESTEROL 127.0 mg/dLHDL 39.0 mg/dLTOT CHOL/HDL 3.3 LDL (CALC) 72.0 mg/dLGLUCOSE 83.0 mg/dLSODIUM 145.0 mmol/LPOTASSIUM 3.80 mmol/LCHLORIDE 105.0 mmol/LCO2 27.0 mmol/LBUN 26.0 mg/dLCREATININE 1.0 mg/dLSGOT/AST 25.0 IU/LSGPT/ALT 36.0 IU/LALK PHOS 69.0 IU/LTOTAL PROTEIN 7.50 g/dLALBUMIN 4.20 g/dLTOTAL BILI 0.40 mg/dLCALCIUM 10.0 mg/dLAGE 52 GFR NonAA 79 GFR AA 96 eGFR 60 eGFR AA* 60 10/30/2013 9:15 AM WBC 6.3 RBC 5.04 HGB 15.10 g/dLHCT 45.70 %MCV 91.0 fLMCH 30.0 pgMCHC 33.0 g/dLRDW SD 43 RDW CV 13.20 %MPV 10.90 fLPLT 178 NRBC# 0.00 NRBC% 0.0 History Of Immunizations Not available. History of [...] Irregular heart beat Mar 05 2016 11:21AM Payers Insurance Name Company Name Plan Name Plan Number Policy Number Policy Group Number [facility] [id number] N/A [place] Medical Assistance [facility] Medical Assistance [facility] [id number] N/A History of Encounters Visit Date Visit Type Provider 01/29/2016 Office visit ALL WOODS 08/21/2015 Office [...]
--- OUTSIDE RECORDS SUMMARY | 2018-08-06 07:51 | XMS REPORT ---
Author ALL Govea [facility] Address [address] [place], [place] [phone] Care Team Providers Care Mechanical Laboratory Technician Name Role Phone ALL GELLER PCP ALL [...] HC BMI BSA BMI Percentile O2 Sat(%) 04/03/2017 11:07:00 AM 108 mmHg 70 mmHg [...] 2017 10:48AM Fatigue Aug 03 2017 10:48AM Payers Insurance Name Company Name Plan Name Plan Number Policy Number Policy Group Number Start Date [facility] [id number] N/A [place] Medical Assistance Program [place] Medical Assistance Prog [id number] N/A History of Encounters Visit Date Visit Type Provider 08/03/2017 Office visit ALL WOODS 04/03/2017 Office visit ALL WOODS 12/04/2016 Office visit ALL WOODS 09/08/2016 Office visit ALL WOODS 06/09/2016 Office visit ALL WOODS 05/12/2016 Office visit ALL WOODS 04/21/2016 Office visit All Euceda MD 03/11/2016 [facility] Dina Hodgson MD 01/29/2016 Office visit [...]
--- OUTSIDE RECORDS SUMMARY | 2018-08-06 07:51 | XMS REPORT ---
Author Author ALL GELLER [facility] Address [address] [place], [place] [phone] Care Team Providers Care Securities And Real Estate Director Name Role Phone ALL GELLER PCP ALL GELLER PreferredProvider Allergies and Adverse Reactions Name Reaction Notes NO KNOWN DRUG ALLERGIES Plan of Treatment Planned Activity Comments Planned Date Planned Time Plan/Goal MRI ABDOMEN W/WO CONTRAST 04/21/2016 12:00 AM Medications Active Name Start Date [...] the first 3 days of every month Zithromax Z-Edmund 250 mg oral tablet 04/03/2017 04/08/2017 take 2 tablets (500 mg) by oral route once daily for 1 day then 1 tablet (250 mg) by oral route once daily for 4 days Name Start Date Expiration Date SIG [...] infection, unspecified type Apr 03 2017 11:09AM Payers Insurance Name Company Name Plan Name Plan Number Policy Number Policy Group Number Start Date [facility] [id number] N/A [place] Medical Assistance Program [place] Medical Assistance Prog [id number] N/A History of Encounters Visit Date Visit Type Provider 04/03/2017 Office visit ALL WOODS 12/04/2016 Office visit ALL WOODS 09/08/2016 Office visit ALL WOODS 06/09/2016 Office visit ALL WOODS 05/12/2016 Office visit ALL WOODS 04/21/2016 Office visit lAl Euceda MD 03/11/2016 [facility] Dina Hodgson MD 01/29/2016 Office [...]
--- OUTSIDE RECORDS SUMMARY | 2018-08-06 07:52 | XMS REPORT ---
Author ALL G[facility]a [facility] Address [address] [place], [place] [phone] Care Team Providers Care Concrete Paving Machine Operator Name Role Phone ALL GELLER PCP Unavailable ALL GELLER PreferredProvider Unavailable Allergies and Adverse Reactions Name Reaction [...] HC BMI BSA BMI Percentile O2 Sat(%) 06/09/2016 11:34:00 AM 125 mmHg 62 mmHg 102 bpm 18 rpm 97.4 F 141 lbs 64 in 24.20 kg/m2 1.70 m2 95 % 05/12/2016 2:06:00 PM 124 mmHg 70 mmHg 62 bpm 16 rpm 97.1 F 134 lbs 64 in 23.0008 kg/m 1.6567 m 98 % 04/21/2016 10:45:00 AM 130 mmHg 104 mmHg 97 bpm 20 rpm 97.6 F 144 lbs 64 in 24.72 kg/m2 1.72 m2 95 % 01/29/2016 3:47:00 PM 122 mmHg 80 mmHg 92 bpm 16 rpm 97.9 F 154 lbs 64 in 26.4338 kg/m 1.776 m 98 % 08/21/2015 10:22:00 AM 108 mmHg [...] 12:00 AM ELECTROCARDIOGRAM TRACING Returned Results Summary Data and Description Results 06/27/2009 [...] disorder, bipolar type Jun 09 2016 11:35AM Payers Insurance Name Company Name Plan Name Plan Number Policy Number Policy Group Number Start Date [facility] [id number] N/A [place] Medical Assistance Program [place] Medical Assistance Prog [id number] N/A History of Encounters Visit Date Visit Type Provider 06/09/2016 Office visit ALL WOODS 05/12/2016 Office visit ALL OWODS 04/21/2016 Office visit All Euceda MD 03/11/2016 [facility] Rosalia Hodgson MD 01/29/2016 Office visit ALL WOODS 08/21/2015 Office visit ALL GELLER PA 10/16/2014 Office visit ALL GELLER PA 10/11/2013 Office visit ALL GELLER PA 12/08/2012 Office visit ALL GELLER PA 06/08/2012 Office visit ALL GELLER PA 10/14/2011 Office visit ALL GELLER PA 07/08/2011 Office visit ALL GELLER PA 04/16/2011 Office visit ALL GELLER PA 01/15/2011 Office visit ALL GELLER PA 10/03/2010 Office visit All WOODS-C 05/30/2009 Office visit All Geller PAMichC
--- OUTSIDE RECORDS SUMMARY | 2018-08-06 07:53 | XMS REPORT ---
Author Author ALL GELLER [facility] Address [address] [place], [place] [id number] Care Team Providers Care Licensed Architect Name Role Phone ALL GELLER PCP Unavailable [...] HC BMI BSA BMI Percentile O2 Sat(%) 05/12/2016 2:06:00 PM 124 mmHg 70 mmHg [...] Chest congestion Stable May 12 2016 2:07PM Payers Insurance Name Company Name Plan Name Plan Number Policy Number Policy Group Number Start Date [facility] [id number] N/A [place] [facility] [place] [id number] N/A History of Encounters Visit Date Visit Type Provider 05/12/2016 Office visit ALL WOODS 04/21/2016 Office visit All Euceda MD 03/11/2016 [facility] Dina Hodgson MD 01/29/2016 Office visit ALL WOODS 08/21/2015 Office visit ALL WOODS 10/16/2014 Office visit ALL WOODS 10/11/2013 Office visit ALL WOODS 12/08/2012 Office visit ALL WOODS 06/08/2012 Office visit ALL WOODS 10/14/2011 Office visit ALL WOODS 07/08/2011 Office visit ALL WOODS 04/16/2011 Office visit LAL WOODS 01/15/2011 Office visit ALL WOODS 10/03/2010 Office visit All Geller PA-C 05/30/2009 Office visit All Geller PA-C
--- OUTSIDE RECORDS SUMMARY | 2018-08-06 07:53 | XMS REPORT ---
Author All Schultz [facility] Address [address] [place], [place] [id number] Care Team Providers Care Corporate Webmaster Name Role Phone All Euceda PCP Unavailable Allergies and Adverse Reactions Name [...] HC BMI BSA BMI Percentile O2 Sat(%) 04/21/2016 10:45:00 AM 130 mmHg 104 mmHg [...] 11:21AM Pancreatic lesion Apr 21 2016 10:45AM Payers Insurance Name Company Name Plan Name Plan Number Policy Number Policy Group Number [facility] [id number] N/A [place] Medical Assistance [facility] Medical Assistance Pro [id number] N/A History of Encounters Visit Date Visit Type Provider 04/21/2016 Office visit All Euceda MD 01/29/2016 Office visit ALL WOODS 08/21/2015 Office visit ALL WOODS 10/16/2014 Office visit ALL WOODS 10/11/2013 Office visit ALL WOODS 12/08/2012 Office visit ALL WOODS 06/08/2012 Office visit ALL WOODS 10/14/2011 Office visit ALL WOODS 07/08/2011 Office visit ALL WOODS 04/16/2011 Office visit ALL WOODS 01/15/2011 Office visit ALL WOODS 10/03/2010 Office visit All Mcadams PA-C 05/30/2009 Office visit All Mcadams PA-C
--- OUTSIDE RECORDS SUMMARY | 2018-08-06 07:54 | XMS REPORT ---
Author ALL Govea [facility] Address [address] [place], [place] [phone] Care Team Providers Care Sleep Tech Name Role Phone ALL GELLER PCP Unavailable [...] disorder; Bipolar type Jan 29 2016 3:47PM Payers Insurance Name Company Name Plan Name Plan Number Policy Number Policy Group Number Start Date [facility] [id number] N/A [facility] Assistance [facility] Medical [facility] [id number] N/A History of Encounters Visit Date Visit [...]
--- OUTSIDE RECORDS SUMMARY | 2018-08-06 07:54 | XMS REPORT ---
Author ALL Govea [facility] Address [address] [place], [place] [phone] Care Team Providers Care Image Archivist Name Role Phone ALL GELLER PCP Unavailable [...] disorder; Bipolar type Jan 29 2016 3:47PM Tachycardia Mar 05 2016 11:21AM Afib Mar 05 2016 11:21AM Payers Insurance Name Company Name Plan Name Plan Number Policy Number Policy Group Number [facility] [id number] N/A [place] Medical Assistance [facility] Medical Assistance Pro [id number] N/A History of Encounters Visit Date Visit [...]
--- OUTSIDE RECORDS SUMMARY | 2018-08-06 07:55 | XMS REPORT ---
Author ALL Govea [facility] Address [address] [place], [place] [phone] Care Team Providers Care Tool Design Engineer Name Role Phone ALL GELLER PCP ALL [...] AM COMPLETE CBC W/AUTO DIFF WBC Returned Results Summary Not available. History Of [...] Policy Number Policy Group Number [facility] Date [facility] [id number] N/A [place] Medical Assistance [facility] Medical Assistance Pro [id number] N/A History of Encounters Visit Date Visit Type Provider 08/03/2017 Office visit ALL WOODS 04/03/2017 Office visit ALL WOODS 12/04/2016 Office visit ALL WOODS 09/08/2016 Office visit ALL WOODS 06/09/2016 Office visit ALL WOODS 05/12/2016 Office visit ALL WOODS 04/21/2016 Office visit All Euceda MD 03/11/2016 [facility] Dina Hodgson MD 01/29/2016 Office visit ALL [...]
--- OUTSIDE RECORDS SUMMARY | 2018-08-06 07:55 | XMS REPORT ---
Author ALL Govea [facility] Address [address] [place], [place] [phone] Care Team Providers Care Wood Gluer Name Role Phone ALL GELLER PCP Unavailable [...] HC BMI BSA BMI Percentile O2 Sat(%) 12/05/2016 11:07:00 AM 125 mmHg 62 mmHg 70 bpm 16 rpm 98.4 F 147 lbs 64 in 25.23 kg/m2 1.74 m2 98 % 09/08/2016 11:28:00 AM 122 mmHg 78 mmHg 92 bpm 16 rpm 98.2 F 145 lbs 64 in 24.8889 kg/m 1.7234 m 100 % 06/09/2016 11:34:00 AM 125 mmHg [...] F 140 lbs 64 in 24.03 kg/m2 1.6934 m 99 % 06/08/2012 3:00:00 PM 110 mmHg 60 mmHg 120 bpm 16 rpm 97.3 F 140 lbs 64 in 24.0307 kg/m 1.69 m2 99 % 10/14/2011 10:16:00 AM 105 mmHg 64 mmHg 52 bpm 18 rpm 142.312 lbs 07/08/2011 9:56:00 AM 114 mmHg 72 mmHg 66 bpm 140 lbs 64 in 24.0307 kg/m 1.69 m2 96 % 04/16/2011 10:04:00 AM 118 mmHg 72 mmHg 80 bpm 139 lbs 63 in 24.62 kg/m2 1.6741 m 97 % 01/15/2011 9:48:00 AM 112 mmHg 80 mmHg 93 bpm 138 lbs 63 in 24.4454 kg/m 1.67 m2 96 % 10/03/2010 10:09:00 AM [...] unspecified trigger Improving Dec 05 2016 11:08AM Payers Insurance Name Company Name Plan Name Plan Number Policy Number Policy Group Number Start Date [facility] [id number] N/A [place] Medical Assistance [facility] Pro [id number] N/A History of Encounters Visit Date Visit Type Provider 12/04/2016 Office visit ALL WOODS 09/08/2016 Office visit ALL WOODS 06/09/2016 Office visit ALL WOODS 05/12/2016 Office visit ALL WOODS 04/21/2016 Office visit All Euceda MD 03/11/2016 [facility] Dina Hodgson MD 01/29/2016 Office [...]
--- OUTSIDE RECORDS SUMMARY | 2018-08-06 07:56 | XMS REPORT ---
Author ALL Govea [facility] Address [address] [place], [place] [address] Care Team Providers Care Dining Car Conductor Name Role Phone ALL GELLER PCP Unavailable [...] Policy Number Policy Group Number [facility] Date [facility] [id number] N/A [place] Medical Assistance [facility] Medical Assistance [facility] [id number] N/A History of Encounters Visit Date Visit [...]
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
--- OUTSIDE RECORDS SUMMARY | 2018-08-06 07:57 | XMS REPORT ---
Author ALL Govae [facility] Address [address] [place], [place] [id number] Care Team Providers Care Coating Machine Helper Name Role Phone ALL GELLER PCP [...] HC BMI BSA BMI Percentile O2 Sat(%) 09/08/2016 11:28:00 AM 122 mmHg 78 mmHg [...] 12:00 AM ELECTROCARDIOGRAM TRACING Returned Results Summary Date and Description Results 06/27/2009 6:35 AM TRIGLYCERIDES [...] without abnormal findings Sep 08 2016 11:30AM Payers Insurance Name Company Name Plan Name Plan Number Policy Number Policy Group Number Start Date [facility] [id number] N/A [place] [employer] [place] Program [place] [employer] Prog [id number] N/A History of Encounters Visit Date Visit Type Provider 09/08/2016 Office visit ALL WOODS 06/09/2016 Office visit ALL GELLER PA 05/12/2016 [...]
--- NOTE | 2018-08-06 08:01 | Progress Note-Pre Operative ---
Pre-Operative Progress Note H&P Reviewed The H&P was reviewed, patient examined and no changes noted. Date Seen by Provider: August 06, 2018 Time Seen by Provider: 08:00 Date H&P Reviewed: August 06, 2018 Time H&P Reviewed: 08:00 Pre-Operative Diagnosis: REc Bilat Epistaxis ROD YODER MD August 06, 2018 08:01
[2018-08-06] MEDS ORDERED: LACTATED RINGERS 1,000 ML IV PRN (08:09)
[2018-08-06 08:26] LABS: BASOPHILS % (AUTO) 0 % (0-10); EOSINOPHILS % (AUTO) 1 % (0-10); HEMATOCRIT 43 % (40-54); HEMOGLOBIN 14.4 G/DL (13.3-17.7); LYMPHOCYTES # (AUTO) 1.2 X 10^3 (1.0-4.0); LYMPHOCYTES % (AUTO) 21 % (12-44); MEAN CORPUSCULAR HEMOGLOBIN 30 PG (25-34); MEAN CORPUSCULAR HGB CONC 34 G/DL (32-36); MEAN CORPUSCULAR VOLUME 89 FL (80-99); MEAN PLATELET VOLUME 10.1 FL (7.4-10.4); MONOCYTES # (AUTO) 0.4 X 10^3 (0.0-1.0); MONOCYTES % (AUTO) 6 % (0-12); NEUTROPHILS % (AUTO) 72 % (42-75); PLATELET COUNT 173 10^3/uL (130-400); RED CELL DISTRIBUTION WIDTH 12.7 % (10.0-14.5); WHITE BLOOD COUNT 5.6 10^3/uL (4.3-11.0)
[2018-08-06] MEDS ORDERED: SEVOFLURANE (ULTANE) 15 ML INHAL SOLN ONE ×2 (08:35→10:07)
[2018-08-06] MEDS ORDERED: proPOfol 200 MG/20 ML (DIPRIVAN) VIAL IV ONE (08:35)
[2018-08-06] MEDS ORDERED: fentaNYL INJECTION 100 MCG/2 ML AMP ONE (08:35)
[2018-08-06] MEDS ORDERED: ONDANSETRON 4 MG/2 ML (SDV) Z0FRAN ONE (08:35)
[2018-08-06] MEDS ORDERED: DEXAMETHASONE 10 MG/ML (DECADRON) 1 ML VIAL ONE (08:35)
[2018-08-06] MEDS ORDERED: LIDOCAINE PF 2% 5 ML (XYLOCAINE) VIAL ONE (08:35)
[2018-08-06] MEDS ORDERED: MIDAZOLAM 2 MG/2 ML (VERSED) VIAL ONE (08:36)
[2018-08-06] MEDS ORDERED: PHENYLEPHRINE 0.5% NASAL SPR (NEO-SYNEPHRINE) REG ONE (08:40)
[2018-08-06] MEDS ORDERED: COCAINE HCL 4% 2 ML SYR ONE (08:40)
[2018-08-06] MEDS ORDERED: LIDOCAINE/EPI 1%-1:100,000 (XYLOCAINE) 20ML ONE (08:40)
[2018-08-06] MEDS ORDERED: MUPIROCIN 2% OINT 22 GM (BACTROBAN) TUBE ONE (08:40)
[2018-08-06 08:45] LABS: BUN/CREATININE RATIO 20; CALCIUM 9.2 MG/DL (8.5-10.1); CARBON DIOXIDE 27 MMOL/L (21-32); CHLORIDE 106 MMOL/L (98-107); CREATININE SERUM 0.75 MG/DL (0.60-1.30); GFR ESTIMATED > 60; GLUCOSE 96 MG/DL (70-105); POTASSIUM 4.2 MMOL/L (3.6-5.0); SODIUM 138 MMOL/L (135-145)
[2018-08-06] MEDS ORDERED: D5 1/2 NS W/KCL 20 MEQ/L 1,000 ML IV SCH (09:23)
--- NOTE | 2018-08-06 09:23 | Progress Note-Post Operative ---
Post-Operative Progess Note Surgeon (s)/Robotics Application Engineer (s) Surgeon ROD YODER MD Robotics Application Engineer n/a Pre-Operative Diagnosis REc Bilat Epistaxis Post-Operative Diagnosis same Post-Op Procedure Note Date of Procedure: August 06, 2018 Name of Procedure Performed: Bilat Endoscpic Repair of Epistaxis Description & Findings Description and Findings: n/a Anesthesia Type lma Estimated Blood Loss minimal Packing none. Specimen(s) collected/removed none ROD YODER MD August 06, 2018 09:23
[2018-08-06] MEDS ORDERED: PHENYLEPHRINE 100 MCG/ML 10 ML (ANESTHESIA) SYR ONE (09:28)
[2018-08-06] MEDS ORDERED: NEOSTIGMINE 1 MG/ML 5 ML SYRINGE ONE (09:30)
[2018-08-06] MEDS ORDERED: ACETAMINOPHEN 500 MG TAB (TYLENOL) PO PRN (09:30)
[2018-08-06] MEDS ORDERED: PHENYLEPHRINE 0.5% NASAL SPR (NEO-SYNEPHRINE) REG PRN (09:30)
[2018-08-06] MEDS ORDERED: ROCURONIUM 10 MG/ML 5 ML SYRINGE IV ONE (09:30)
[2018-08-06] MEDS ORDERED: HYDROcodone/APAP 5 MG/325 MG (LORTAB) TAB PO PRN ×2 (09:30)
[2018-08-06] MEDS ORDERED: GLYCOPYRROLATE 0.2 MG/ML (ROBINUL) 2 ML VIAL ONE (09:30)
[2018-08-06] MEDS ORDERED: RT-ALBUTEROL SULF 2.5 MG/3 ML PRE-MIX VIAL ONE (10:07)
[2018-08-06] MEDS ORDERED: ONDANSETRON 4 MG/2 ML (SDV) Z0FRAN IVP PRN (10:15)
[2018-08-06] MEDS ORDERED: HYDROmorphone 2 MG/ML VIAL (DILAUDID) IV ONE (10:15)
--- NOTE | 2018-08-06 10:20 | Anesthesia-General Post-Op ---
General Patient Condition Mental Status/LOC: Same as Preop Cardiovascular: Satisfactory Nausea/Vomiting: Absent Respiratory: Satisfactory Pain: Controlled Complications: Absent Post Op Complications Complications None Follow Up Care/Instructions Patient Instructions None needed. Anesthesia/Patient Condition Patient Condition Patient is doing well, no complaints, stable vital signs, no apparent adverse anesthesia problems. No complications reported per nursing. FACUNDO ARGUETA CRNA August 06, 2018 10:20
[2018-08-06] MEDS ORDERED: RT-ALBUTEROL SULF 2.5 MG/3 ML PRE-MIX VIAL INH ONE (10:30)
[2018-08-06] MEDS ORDERED: SODI14.12 TP (11:02)
[2018-08-06] MEDS ORDERED: OXYM15MI4 NS (11:02)
[2018-08-06] MEDS ORDERED: OXYM30SP70 NSEACH (11:02)
== END 2018-08-06 11:55 | disposition home or self-care (01) ==
LOC: SDC 07:40
PROVIDERS: ATTEND Otolaryngology Otolaryngology/Facial Plastic Surgery
DX: R04.0 Epistaxis (principal); F63.81 Intermittent explosive disorder; F79 Unspecified intellectual disabilities; F41.9 Anxiety disorder, unspecified; Z79.899 Other long term (current) drug therapy
CPT/HCPCS: 36415; 80048; 85025; 87081